=== PATIENT | male | born 1975 | race Caucasian/White ===

== ENCOUNTER 2023-06-04 09:48 | Outpatient (REF) | payer OTHER, SELFPAY | END 2023-06-04 09:49 | disposition home or self-care (01) | LOC: HO.HOSX 09:48 | PROVIDERS: Visit Provider Orthopaedic Surgery | DX: Z13.89 Encounter for screening for other disorder (principal) ==

== ENCOUNTER 2023-06-09 13:54 | Outpatient (AMB) | payer OTHER, SELFPAY ==
--- NOTE | 2023-06-09 13:59 | A.OFFVIS_ITS ---
Intake Vital Signs 06/09/23 14:09 Height 5 ft 11 in Weight 216 lb BMI 30.1 Intake Visit Reasons: [employer]- RT Hip pain Intake Note: Angel is a 48 year old male who presents as a new patient with Right hip pain that radiates to the groin and knee. The patient did undergo left total hip replacement surgery at [facility] in 2016. He denies any pain in his left hip. He describes his right hip pain as sharp and severe in nature. His right hip pain has gotten worse over the last few years in spite of continued non operative treatments. He has tried Tylenol and anti-inflammatory medicines which gave him minimal relief. He has also done physical therapy exercises which aggravated his pain. The patient has difficulty walking even short distances because of his pain. At this point his right hip pain is interfering with his activities of daily living and his ability to sleep well through the night. Allergies No Known Allergies Allergy (Verified 06/09/23 14:12) [facility] Surgical History (Updated 06/09/23 @ 14:18 by Veronica Shetty CMA) Hx of shoulder surgery (~2006) History of shoulder surgery (~1995) History of hip surgery (~2015) Social History (Updated 06/09/23 @ 14:15 by Veronica Shetty CMA) Patient Tobacco Use Status: Never used Tobacco Current occupation: sales , Right hand dominate Physical Exam Vital Signs: BMI result Body Mass Index 30.1 Const Other: Well-nourished well-developed very friendly male awake alert and oriented x3 in no acute distress Extrem Other: Bilateral lower extremity examination shows good capillary refill, no skin lesions noted, normal sensation light touch Right hip examination shows decreased range of motion when compared to his left hip, pain with range of motion, no tenderness over his bursa Results Reviewed Results Reviewed: X-rays of the patient's right hip show end-stage degenerative joint disease with grade 4 [id number] arthritis, subchondral sclerosis, osteophyte formation, no acute bony abnormalities Assessment & Plan Assessment & Plan (1) Arthritis of right hip: Code(s): M16.11 - Unilateral primary osteoarthritis, right hip Plan Mr. Almonte presents with progressively worsening right hip pain due to end- stage degenerative joint disease. I had a lengthy discussion with the patient regarding the treatment options. At this point he has failed continued non op erative treatments. The risks and benefits of right total hip replacement surgery were discussed at length with the patient. The patient is interested in proceeding with surgery at the end of this year. I will have my office contact the patient to pick a tentative surgery date. I will see him back prior to his surgery to answer any final questions that he might have. He will follow-up as instructed. I spent 20 minutes in reviewing the patient's records and imaging studies, seeing the patient and documenting in the medical record. Orders: Orders XR hip RT min 2V 06/04/23 M25.551 - Pain in right hip XR hip RT min 2V Today M25.551 - Pain in right hip Coding Level of Care Code Est Pt Level 2 (71851) Diagnoses Arthritis of right hip M16.11
[2023-06-09 14:09] VITALS: BMI 30.1
== END 2023-06-09 14:37 | disposition home or self-care (01) ==
PROVIDERS: Visit Provider Orthopaedic Surgery
DX: M16.11 Unilateral primary osteoarthritis, right hip (principal)
CPT/HCPCS: 99213

== ENCOUNTER 2023-06-09 15:22 | Outpatient (REF) | payer OTHER, SELFPAY ==
--- NOTE | ~2023-06-09 | XR_ITS ---
EXAMINATION: XR HIP, RIGHT CLINICAL INFORMATION: Right hip pain COMPARISON: None available. TECHNIQUE: Two views of the right hip. FINDINGS: No fracture. There is marked narrowing of the superior-lateral aspect of the joint space of the right hip with subchondral sclerosis and cystic changes on both sides of the joint. There is a large osteophyte extending off the inferior aspect of the femoral head medially. There is partial visualization of a left total hip prosthesis with the acetabular component secured with 2 screws. There is a cerclage wire are along the proximal femoral component with a fracture of the cerclage wire. No periprosthetic lucency. There is a small bony fragment extending off the left lateral lower ilium, likely old. XR/XR hip RT min 2V IMPRESSION: 1. Marked osteoarthritis of the right hip. 2. Left total hip prosthesis with fracture of the cerclage wire along the proximal femoral component.
== END 2023-06-09 15:23 | disposition home or self-care (01) ==
LOC: HO.HOSX 15:22
PROVIDERS: Visit Provider Orthopaedic Surgery
DX: M16.11 Unilateral primary osteoarthritis, right hip (principal)
CPT/HCPCS: 73502